=== PATIENT | female | born 1995 | race Caucasian/White ===

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

== ENCOUNTER 2017-07-11 12:15 | Emergency (ER) | payer BC ==
[~2017-07-11] VITALS: Ht 152.4 cm; Wt 59.5 kg
[~2017-07-11 12:15] MED LIST: FERR325C PO; PREN1TAB17 PO
[2017-07-11 12:19] VITALS: Ht 152.4 cm; Wt 59.5 kg
[2017-07-11] MEDS ORDERED: AMOX1TAB9 PO (12:49)
[2017-07-11] MEDS ORDERED: DIPHTH/TET/ACEL PERTUSS (ADULT) 0.5 ML VIAL IM* ONE (13:00)
[2017-07-11] MEDS ORDERED: AMOXICILLIN/CLAV 500 MG TAB PO ONE (13:00)
--- NOTE | 2017-07-11 13:04 | ERD ---
ER Documentation Chief Complaint Chief Complaint Complains of a dog bite today HPI 22-year-old female presents to the emergency room complaining of a dog bite to her left buttock that occurred earlier today. Patient states that the dog was unknown to her. She states that pain is minimal, she does not remember her last tetanus ROS All systems reviewed and are negative except as per history of present illness. Medications Home Meds Active Scripts Amoxicillin/Potassium Clav (Amox-Clav 500-125 mg Tablet) 500-125 mg Tab, 1 TAB PO BID for 7 Days, TAB Prov:ANTIONETTE SOTO PA-C 07/11/17 Reported Medications Ferrous Sulfate (Iron) 325 Mg Capsule.er, 325 MG PO DAILY, CAP 10/15/16 Vit-Iron Fumarate-FA ( Tablet) 1 Each Tablet, 1 TAB PO DAILY, TAB 10/15/16 Allergies Allergies: Coded Allergies: No Known Allergy (Unverified , 10/15/16) PMhx/Soc History of Surgery: No Anesthesia Reaction: No Hx Neurological Disorder: No Hx Respiratory Disorders: No Hx Cardiac Disorders: No Hx Psychiatric Problems: No Hx Miscellaneous Medical Probl: No Hx Alcohol Use: No Hx Substance Use: No Hx Tobacco Use: No Physical Exam Vitals Vital Signs Date Time Temp Pulse Resp B/P Pulse Ox O2 Delivery O2 Flow Rate FiO2 07/11/17 12:19 98.9 84 20 114/69 96 Physical Exam General: WD/WN, in no apparent distress, non-toxic appearing HENT: NC/AT Eyes: Conjunctiva normal Neck: Supple Pulm: Clear to auscultation, normal labored breathing; no wheezing/rales/ rhonchi heard CV: Good capillary refill GI: Non-distended, no guarding Back: No masses Ext: No clubbing, cyanosis, or edema Neuro: Moves on all fours Skin: abrasion to the left buttock Psych: Normal mood Results 24 hrs Current Medications Medications (Trade) Dose Ordered Sig/Opal Route PRN Reason Start Time Stop Time Status Last Admin Dose Admin Amoxicillin/ Clavulanate Potassium (Augmentin) 500 mg ONCE ONCE PO 07/11/17 13:00 07/11/17 13:01 Diphtheria/ Tetanus/Acell Pertussis (Adacel) 0.5 ml ONCE ONCE IM* 07/11/17 13:00 07/11/17 13:01 Procedures/MDM This is a 22-year-old female presenting to emergency department with an abrasion to her left buttock from a dog bite that occurred earlier today. There was no evidence of foreign body on examination. Patient appears well wound was irrigated and dressed, she was given tetanus. Patient was also given a prescription for Augmentin, first dose given the ED. Stable to be discharged home with precautions to return to the emergency department for any worsening signs or symptoms. Departure Diagnosis: Primary Impression: Dog bite Condition: Stable Patient Instructions: Dog Bite ANTIONETTE SOTO PA-C Jul 11, 2017 13:04
== END 2017-07-11 13:29 | disposition home or self-care (01) ==
LOC: FTE 12:15
DX: S31.825A Open bite of left buttock, initial encounter (principal); W54.0XXA Bitten by dog, initial encounter; Y92.9 Unspecified place or not applicable
CPT/HCPCS: 90715; Z7502; Z7610; 99283

== ENCOUNTER 2017-12-18 21:04 | Emergency (ER) | END 2017-12-19 03:00 | disposition left against medical advice (07) ==

== ENCOUNTER 2017-12-23 05:25 | Emergency (ER) | END 2017-12-23 07:10 | disposition home or self-care (01) ==